=== PATIENT | female | born 1980 ===

== ENCOUNTER 2017-06-20 11:14 | Outpatient (CLI) | payer OTHER | END 2017-06-20 11:16 | disposition home or self-care (01) | LOC: LAB 11:14 | DX: N30.00 Acute cystitis without hematuria (principal) ==

== ENCOUNTER 2017-06-21 07:45 | Outpatient (CLI) | payer OTHER | END 2017-06-21 07:56 | disposition home or self-care (01) | LOC: TOM 07:45 | DX: N39.0 Urinary tract infection, site not specified (principal) ==

== ENCOUNTER 2017-12-09 10:01 | Outpatient (CLI) | payer OTHER | END 2017-12-09 10:14 | disposition home or self-care (01) | LOC: MRI 10:01 | DX: M54.5 Low back pain (principal) | CPT/HCPCS: 72148 ==